=== PATIENT | female | born 1975 | race Caucasian/White ===

== ENCOUNTER 2025-03-01 09:01 | Outpatient (CLI) | payer OTHER, SELFPAY ==
--- NOTE | ~2025-03-01 | XR_ITS ---
XR chest 2V 03/01/2025 12:46 Indication: Shortness of breath Procedure: 2 view chest Comparison: 01/28/2019 Findings: Marked cardiomegaly. No focal air space disease, pulmonary edema, pleural effusion or suspe cted pneumothorax. Impression: 1: Cardiomegaly. Reviewed, dictated and finalized at location B. Impression: 1: Cardiomegaly.
--- OUTSIDE RECORDS SUMMARY | 2025-03-01 09:17 | XMS_ITS | Clinical Summary ---
Author Organization [facility] Address [address] [place] [id number] Care Team Providers Care Office Machine Installer Name Role Phone Ladan López [facility] Primary Care Provider [phone] Allergies No known active allergies Medications meclizine 25 MG tablet Take 25 mg by mouth 3 (three) times daily as needed. Active Active Problems Problem Noted Date Diagnosed Date Chest pain of uncertain etiology 02/17/2019 Palpitations 02/17/2019 SOB (shortness of breath) 02/17/2019 Localized edema 02/17/2019 Family History Medical History Relation Comments Cancer, Lung Father Relation Status Comments Father Social History Tobacco Use Types Packs/Day Years Used Date Smoking Tobacco: Former Smokeless Tobacco: Never Comments Unknown Sex and Gender Information Value Date Recorded Sex Assigned at Not on file Legal Sex Female 1:08 PM CDT Gender Identity Not on file Sexual Orientation Not on file Last Filed Vital Signs Vital Sign Reading Time Taken Comments Blood Pressure 110/80 02/17/2019 3:06 PM CDT Pulse 76 02/17/2019 3:06 PM CDT Temperature - - Respiratory Rate - - Oxygen Saturation - - Inhaled Oxygen Concentration - - Weight 115.2 kg (254 lb) 02/17/2019 3:06 PM CDT Height 167.6 cm (5' 6) 02/17/2019 3:06 PM CDT Body Mass Index 41 02/17/2019 3:06 PM CDT Plan of Treatment Health Maintenance Due Date Last Done Comments Cervical Cancer Screening Pa p Smear (Age 30 to 64) Every 3 Years 1976 Colorectal Cancer Screening Colonoscopy (10 Years) 1976 Annual Physical 1979 Hepatitis C 1994 DTaP, Tdap and Td Vaccines ( 1 - Tdap) 1995 Hepatitis B Vaccines (1 of 3 - 19+ 3-dose series) 1995 Cervical Cancer Screening Pa catherine with HPV Testing (Age 30 to 64) Every 5 Years 2006 Cervical Cancer Screening with HPV 2006 Mammogram Screening 2016 COVID-19 Vaccine (2023-2 5 season) 2024 Meningococcal B Vaccine Aged Out No l onger eligible based on patient's age to complete this topic Meningococcal Vaccine Aged Out No cj ellen eligible based on patient's age to complete this topic Pneumococcal Vaccine: Pediat rics (0 to 5 Years) and At-Risk Patients (6 to 49 Years) Aged Out No longer eligible b ased on patient's age to complete this topic RSV Immunizations Under 20 Months Aged Out No longer eligible based on patient's age to complete this topic Care Teams Office Machine Installer Relationship Specialty Start Date End Date Ladan López FNP-BC [address] [place] [address] PCP - General NURSE PRACTITIONER 02/04/19
[2025-03-01 09:41] LABS: INR 1.1; Prothrombin Time 12.4 Seconds (9.50-12.1)
--- NOTE | 2025-03-01 12:57 | ECHO_ITS ---
Patient Info Name: Juan Alberto Lal Age: 49 years : 1975 Gender: Female Ht: 65 in Wt: 270 lbs BSA: 2.44 m2 HR: 90 bpm BP: 150 / 90 mmHg Heart Rhythm: Atrial Fibrillation Technical Quality: Poor Exam Date: 03/01/2025 12:50 PM Patient Status: O Admit Date: 03/01/2025 Exam Type: CA echo doppler color flow Complete two-dimensional, color flow and Doppler transthoracic echocardiogram is performed. Staff Referring Physician: Ismael Padilla [employer] Developer: Dayna Daniel Attending Provider: Ismael Padilla Summary 1. Complete two-dimensional, color flow and Doppler transthoracic echocardiogram is performed. 2. Left ventricular chamber dimension is normal. 3. Left ventricular systolic function is normal, estimated at 55-60. 4. There is mild concentric increased left ventricular wall thickness. 5. The left ventricular diastolic function is indeterminate as tissue doppler was not performed. 6. D shaped LV septum during systole suggestive of pressure and volume overload. 7. Atrial fibrillation. 8. Right ventricular chamber dimension is severely enlarged. 9. Right ventricular systolic function is mildly reduced. 10. Left atrial chamber dimension is mildly enlarged. 11. Right atrial chamber dimension is severely enlarged. 12. There is mild to moderate mitral valve regurgitation. 13. There is moderate to severe tricuspid valve regurgitation. 14. No pulmonary hypertension, estimated pulmonary arterial systolic pressure is 31 mmHg. 15. Dilated inferior vena cava with <50% collapse upon inspiration consistent with significantly elevated right atrial pressure, 15 mmHg. Left Ventricle Atrial fibrillation. Left ventricular chamber dimension is normal. Left ventricular systolic function is normal, estimated at 55-60. There is mild concentric increased left ventricular wall thickness. The left ventricular diastolic function is indeterminate as tissue doppler was not performed. D shaped LV septum during systole suggestive of pressure and volume overload. Right Ventricle Right ventricular chamber dimension is severely enlarged. Right ventricular systolic function is mildly reduced. Left Atria Left atrial chamber dimension is mildly enlarged. Right Atria Right atrial chamber dimension is severely enlarged. Aortic Valve The aortic valve is trileaflet. There is no aortic valve stenosis. There is no aortic valve regurgitation. Pulmonic Valve There is no pulmonic regurgitation. Mitral Valve There is no mitral valve stenosis. There is mild to moderate mitral valve regurgitation. Tricuspid Valve There is moderate to severe tricuspid valve regurgitation. No pulmonary hypertension, estimated pulmonary arterial systolic pressure is 31 mmHg. Pericardium/Pleural There is no pericardial effusion. Inferior Vena Cava Dilated inferior vena cava with <50% collapse upon inspiration consistent with significantly elevated right atrial pressure, 15 mmHg. Aorta The aortic root size at the sinus of Valsalva is normal. Left Ventricular Outflow Tract Name Value Normal LVOT 2D LVOT Diameter 1.9 cm LVOT Doppler LVOT Peak Velocity 99 cm/s LVOT Peak Gradient 3 mmHg LVOT Mean Gradient 2 mmHg LVOT VTI 18 cm LVOT VTI/AV VTI Ratio 0.9 LVOT Stroke Volume 54 ml LVOT CO 3.7 l/min LVOT CI 1.5 l/min/m2 Pulmonic Valve Name Value Normal PV Doppler PV Peak Velocity 87 cm/s PV Peak Gradient 2 mmHg Mitral Valve Name Value Normal MV Regurgitation Doppler MR Peak Gradient 32 mmHg Tricuspid Valve Name Value Normal TV Regurgitation Doppler TR Peak Velocity 202 cm/s TR Peak Gradient 14 mmHg Estimated PAP/RSVP RA Pressure 15 mmHg <=5 PA Systolic Pressure 31 mmHg <36 RV Systolic Pressure 31 mmHg <36 TV Annular TDI TV Lateral Jessica s' Velocity 9.3 cm/s >=9.5 Aortic Valve Name Value Normal AV Doppler AV Peak Velocity 127 cm/s AV Peak Gradient 6 mmHg AV Mean Gradient 3 mmHg AV VTI 21 cm AV Area (Cont Eq VTI) 2.5 cm2 >=3.0 AV Area (Cont Eq Irvin) 2.3 cm2 AV DI (Irvin) 0.78 AV Regurgitation 2D LVOT Area 2.9 cm2 Ventricles Name Value Normal LV Dimensions 2D/MM IVS Diastolic Thickness (2D) 0.9 cm 0.6-1.0 LVID Diastole (2D) 3.9 cm 3.8-5.2 LVIW Diastolic Thickness (2D) 1.3 cm 0.6-0.9 LVID Systole (2D) 2.3 cm 2.2-3.5 LVOT Diameter 1.9 cm LV Mass (2D Cubed) 140.27 g 67.00-162.00 LV Mass Index (2D Cubed) 58 g/m2 43-95 Relative Wall Thickness (2D) 0.67 <=0.42 LV Fractional Shortening/Ejection Fraction 2D/MM LV Fractional Shortening (2D) 40 % 27-45 LV EF (2D Teichholz) 72 % Atria Name Value Normal LA Dimensions LA Volume (4C A-L) 82 ml RA Dimensions RA Systolic Major [place] Length (4C) 10.2 cm 2.2-2.8 RA Area (4C) 70.2 cm2 <=18.0 Report Signatures
== END 2025-03-01 09:02 | disposition home or self-care (01) ==
PROVIDERS: PCP Nurse Practitioner Family; Visit Provider Nurse Practitioner Family
DX: I48.19 Other persistent atrial fibrillation (principal); R06.02 Shortness of breath; I51.7 Cardiomegaly
CPT/HCPCS: 36415; 71046; 85610; 93306

== ENCOUNTER 2025-03-15 08:55 | Outpatient (RCR) | payer OTHER, SELFPAY ==
[2025-02-02 08:56] LABS: INR 1.1; Partial Thromboplastin Time 29.7 Sec (23.9-30.70); Prothrombin Time 12.3 Seconds (9.50-12.1)
[2025-02-08 09:22] LABS: INR 1.2; Prothrombin Time 12.7 Seconds (9.50-12.1)
[2025-02-22 09:02] LABS: INR 1.2; Prothrombin Time 12.6 Seconds (9.50-12.1)
[2025-03-08 12:07] LABS: INR 1.3; Prothrombin Time 15.8 Seconds (11.1-14.7)
[2025-03-15 09:48] LABS: INR 1.2; Prothrombin Time 12.9 Seconds (9.50-12.1)
== END 2025-05-03 23:59 | disposition home or self-care (01) ==
LOC: CHSLAB 08:55
PROVIDERS: PCP Nurse Practitioner Family; Visit Provider Nurse Practitioner Family
DX: I49.9 Cardiac arrhythmia, unspecified (principal)
CPT/HCPCS: 36415; 85610; 85730